=== PATIENT | female | born 1960 | race Caucasian/White ===

== ENCOUNTER → 2022-05-11 | Outpatient (CLI) | payer OTHER ==
[~2022-05-11] MED LIST: NEURONTIN100 MG PO; SYNTHROID25 MCG PO
[2022-05-11 09:10] LABS: BASO # 0.1 10*3/uL (0.0-0.1); BASO % 1.1 % (0.0-1.0); EOS # 0.2 10*3/uL (0.0-0.4); EOS % 2.4 % (1.0-4.0); HEMATOCRIT 45.4 % (37.0-47.0); LYMPH # 1.5 10*3/uL (1.3-4.4); LYMPH % 20.6 % (27.0-41.0); MEAN CELL VOLUME 88.3 fl (81.0-99.0); MEAN CORPUSCULAR HGB 29.2 pg (27.0-31.0); MEAN PLATELET VOLUME 8.8 fl (9.6-12.3); MONO # 0.6 10*3/uL (0.1-1.0); MONO % 8.2 % (3.0-9.0); NEUT # 4.8 10*3/uL (2.3-7.9); NEUT % 67.4 % (47.0-73.0); PLATELET COUNT AUTOMATED 304 10*3/uL (130-400); RED BLOOD COUNT 5.14 10*6/uL (4.10-5.10); RED CELL DISTRI WIDTH 13.7 % (0-14.5); WHITE BLOOD COUNT 7.1 10*3/uL (4.8-10.8)
[2022-05-11 09:38] LABS: ALKALINE PHOSPHATASE 82 U/L (45-117); BUN 9 mg/dl (7-24); CHLORIDE 108 mmol/L (98-107); CHOLESTEROL 199 mg/dL (<200); CREATININE 0.88 mg/dL (0.55-1.02); LDL CHOLESTEROL 121 mg/dL (9-159); POTASSIUM 3.9 mmol/L (3.5-5.1); SGOT/AST 14 IU/L (3-35); SGPT/ALT 15 U/L (12-78); SODIUM 141 mmol/L (136-145); T3 UPTAKE 33 % (31-39); TOTAL PROTEIN 7.5 gm/dL (6.4-8.2); TRIGLYCERIDES 130 mg/dl (<150)
[2022-05-11 10:35] LABS: VITAMIN D, 25-HYDROXY 19.4 ng/mL (30-100)
== END ==
LOC: LAB 08:55
PROVIDERS: ATTEND Internal Medicine
DX: Z13.6 Encounter for screening for cardiovascular disorders (principal); Z13.0 Encounter for screening for diseases of the blood and blood-forming organs and certain disorders involving the immune mechanism; Z13.89 Encounter for screening for other disorder; Z13.820 Encounter for screening for osteoporosis; E55.9 Vitamin D deficiency, unspecified

== ENCOUNTER 2022-11-19 23:27 | Emergency (ER) | payer OTHER ==
[~2022-11-19] VITALS: Ht 167.6 cm; Wt 81.6 kg
[2022-11-20 00:03] LABS: BASO # 0.1 10*3/uL (0.0-0.1); BASO % 0.8 % (0.0-1.0); EOS # 0.2 10*3/uL (0.0-0.4); EOS % 1.6 % (1.0-4.0); HEMATOCRIT 41.9 % (37.0-47.0); LYMPH # 1.8 10*3/uL (1.3-4.4); LYMPH % 16.6 % (27.0-41.0); MEAN CELL VOLUME 89.1 fl (81.0-99.0); MEAN CORPUSCULAR HGB 30.2 pg (27.0-31.0); MEAN CORPUSCULAR HGB CONC 33.9 g/dl (33.0-37.0); MEAN PLATELET VOLUME 9.1 fl (9.6-12.3); MONO # 0.8 10*3/uL (0.1-1.0); MONO % 7.7 % (3.0-9.0); NEUT # 7.7 10*3/uL (2.3-7.9); PLATELET COUNT AUTOMATED 303 10*3/uL (130-400); RED CELL DISTRI WIDTH 13.4 % (0-14.5); WHITE BLOOD COUNT 10.6 10*3/uL (4.8-10.8)
[2022-11-20 00:18] LABS: ACT PARTIAL THROMBO TIME 23.6 SECONDS (20.0-32.1); INTERNATIONAL NORM RATIO 0.9 (2.0-3.5)
[2022-11-20 00:19] LABS: ALKALINE PHOSPHATASE 67 U/L (46-116); BUN 10 mg/dl (9-23); CHLORIDE 107 mmol/L (98-107); POTASSIUM 3.7 mmol/L (3.4-5.1); SGPT/ALT 9 U/L (10-49)
== END 2022-11-20 03:11 | disposition left against medical advice (07) ==
LOC: ED 23:27
PROVIDERS: Emergency Medicine
DX: R07.89 Other chest pain (principal); I10 Essential (primary) hypertension; E03.9 Hypothyroidism, unspecified; I25.10 Atherosclerotic heart disease of native coronary artery without angina pectoris; F17.200 Nicotine dependence, unspecified, uncomplicated; Z88.8 Allergy status to other drugs, medicaments and biological substances; Z79.899 Other long term (current) drug therapy; Z90.710 Acquired absence of both cervix and uterus; Z87.891 Personal history of nicotine dependence

== ENCOUNTER 2022-12-07 10:58 | Inpatient (IN) | payer OTHER ==
[~2022-12-07] VITALS: Ht 167.6 cm; Wt 78.0 kg
[2022-12-07 11:09] VITALS: BP 117/48
[2022-12-07 12:51] LABS: BASO # 0.1 10*3/uL (0.0-0.1); EOS # 0.1 10*3/uL (0.0-0.4); EOS % 0.9 % (1.0-4.0); HEMATOCRIT 47.6 % (37.0-47.0); LYMPH # 1.5 10*3/uL (1.3-4.4); LYMPH % 17.3 % (27.0-41.0); MEAN CELL VOLUME 87.7 fl (81.0-99.0); MEAN CORPUSCULAR HGB 29.5 pg (27.0-31.0); MEAN CORPUSCULAR HGB CONC 33.6 g/dl (33.0-37.0); MEAN PLATELET VOLUME 9.4 fl (9.6-12.3); MONO # 0.6 10*3/uL (0.1-1.0); MONO % 6.6 % (3.0-9.0); NEUT # 6.5 10*3/uL (2.3-7.9); NEUT % 73.9 % (47.0-73.0); PLATELET COUNT AUTOMATED 313 10*3/uL (130-400); RED BLOOD COUNT 5.43 10*6/uL (4.10-5.10); RED CELL DISTRI WIDTH 13.1 % (0-14.5); WHITE BLOOD COUNT 8.8 10*3/uL (4.8-10.8)
[2022-12-07 13:07] LABS: ALKALINE PHOSPHATASE 79 U/L (46-116); BUN 7 mg/dl (9-23); CHLORIDE 105 mmol/L (98-107); LIPASE 45 U/L (12-53); POTASSIUM 3.9 mmol/L (3.4-5.1); SGPT/ALT 11 U/L (10-49); TOTAL PROTEIN 7.8 gm/dL (6.0-8.0)
[2022-12-07 13:09] LABS: INTERNATIONAL NORM RATIO 0.9 (2.0-3.5)
[2022-12-07] MEDS ORDERED: ZOLOFT50 MG PO (18:27)
[2022-12-07 19:40] LABS: CHOLESTEROL 206 mg/dL (<200); LDL CHOLESTEROL 134 mg/dL (9-159); TRIGLYCERIDES 121 mg/dl (<150)
[2022-12-07 20:46] VITALS: BP 122/60
[2022-12-07 23:47] VITALS: BP 86/49
[2022-12-08 00:13] VITALS: BP 92/49
[2022-12-08 02:44] VITALS: BP 97/48
[2022-12-08 04:52] VITALS: BP 97/45
[2022-12-08 08:03] VITALS: BP 100/60
== END 2022-12-08 10:15 | disposition left against medical advice (07) | DRG 206 ==
LOC: ED 10:58 → EDHOLD 15:51
PROVIDERS: Physician Assistant; ADMIT Internal Medicine; ATTEND Internal Medicine
DX: M94.0 Chondrocostal junction syndrome [Tietze] (principal); E78.2 Mixed hyperlipidemia; Z53.29 Procedure and treatment not carried out because of patient's decision for other reasons; Z71.6 Tobacco abuse counseling; Z88.8 Allergy status to other drugs, medicaments and biological substances; Z90.711 Acquired absence of uterus with remaining cervical stump; Z82.49 Family history of ischemic heart disease and other diseases of the circulatory system

== ENCOUNTER 2022-12-10 11:40 | Inpatient (IN) | payer OTHER ==
[~2022-12-10] VITALS: Ht 175.3 cm; Wt 78.6 kg
[~2022-12-10 11:40] MED LIST changes: +ZOLOFT50 MG PO
[2022-12-10 11:49] VITALS: BP 114/55
[2022-12-10 12:10] LABS: BASO # 0.1 10*3/uL (0.0-0.1); BASO % 0.8 % (0.0-1.0); EOS # 0.1 10*3/uL (0.0-0.4); EOS % 0.8 % (1.0-4.0); HEMATOCRIT 43.1 % (37.0-47.0); LYMPH # 1.7 10*3/uL (1.3-4.4); LYMPH % 24.1 % (27.0-41.0); MEAN CELL VOLUME 87.8 fl (81.0-99.0); MEAN CORPUSCULAR HGB 29.3 pg (27.0-31.0); MEAN CORPUSCULAR HGB CONC 33.4 g/dl (33.0-37.0); MEAN PLATELET VOLUME 9.6 fl (9.6-12.3); MONO # 0.5 10*3/uL (0.1-1.0); MONO % 6.7 % (3.0-9.0); NEUT # 4.8 10*3/uL (2.3-7.9); NEUT % 67.3 % (47.0-73.0); PLATELET COUNT AUTOMATED 301 10*3/uL (130-400); RED BLOOD COUNT 4.91 10*6/uL (4.10-5.10); RED CELL DISTRI WIDTH 12.8 % (0-14.5); WHITE BLOOD COUNT 7.2 10*3/uL (4.8-10.8)
[2022-12-10 12:38] LABS: ALKALINE PHOSPHATASE 67 U/L (46-116); BUN 6 mg/dl (9-23); CHLORIDE 108 mmol/L (98-107); LIPASE 39 U/L (12-53); POTASSIUM 3.9 mmol/L (3.4-5.1); SGPT/ALT 10 U/L (10-49); TOTAL PROTEIN 7.2 gm/dL (6.0-8.0)
[2022-12-10 13:36] LABS: ACT PARTIAL THROMBO TIME 24.7 SECONDS (20.0-32.1)
[2022-12-10 16:57] VITALS: BP 115/57
[2022-12-10 17:10] LABS: THYROID STIM HORMONE (HS) 2.069 uIU/ml (0.550-4.780)
[2022-12-10 20:40] VITALS: BP 103/59
[2022-12-11] VITALS: BP 92/52
[2022-12-11 04:55] LABS: BUN 14 mg/dl (9-23); CHLORIDE 109 mmol/L (98-107); POTASSIUM 3.7 mmol/L (3.4-5.1)
[2022-12-11 08:00] VITALS: BP 108/54
[2022-12-11 12:00] VITALS: BP 107/71
[2022-12-11 15:21] VITALS: BP 112/67
[2022-12-11 20:00] VITALS: BP 111/62
[2022-12-12] VITALS: BP 130/86; BP 99/56
[2022-12-12 08:00] VITALS: BP 100/55
[2022-12-12] MEDS ORDERED: BUSPIRONE10 MG PO (10:36)
[2022-12-12 12:00] VITALS: BP 109/68
== END 2022-12-12 14:36 | disposition home or self-care (01) | DRG 313 ==
LOC: ED 11:40 → EDHOLD 14:42 → 5E 14:42
PROVIDERS: Emergency Medicine; Internal Medicine; ADMIT Internal Medicine; ATTEND Internal Medicine
PROC: 4A02XM4 Measurement of Cardiac Total Activity, External Approach (ICD-10-PCS; principal; 2022-12-12)
PROC: 3E073KZ Introduction of Other Diagnostic Substance into Coronary Artery, Percutaneous Approach (ICD-10-PCS; 2022-12-12)
DX: R07.9 Chest pain, unspecified (principal); E03.9 Hypothyroidism, unspecified; I25.10 Atherosclerotic heart disease of native coronary artery without angina pectoris; I10 Essential (primary) hypertension; F41.1 Generalized anxiety disorder; G89.29 Other chronic pain; M54.50 Low back pain, unspecified; E78.2 Mixed hyperlipidemia; Z88.8 Allergy status to other drugs, medicaments and biological substances; Z90.711 Acquired absence of uterus with remaining cervical stump; Z90.710 Acquired absence of both cervix and uterus; Z82.49 Family history of ischemic heart disease and other diseases of the circulatory system; Z71.6 Tobacco abuse counseling; Z98.890 Other specified postprocedural states

== ENCOUNTER 2022-12-14 21:59 | Emergency (ER) | payer OTHER ==
[~2022-12-14] VITALS: Ht 167.6 cm; Wt 81.8 kg
[~2022-12-14 21:59] MED LIST changes: +BUSPIRONE10 MG PO
[2022-12-14 22:33] LABS: BASO # 0.1 10*3/uL (0.0-0.1); BASO % 0.8 % (0.0-1.0); EOS # 0.2 10*3/uL (0.0-0.4); EOS % 1.7 % (1.0-4.0); HEMATOCRIT 41.2 % (37.0-47.0); LYMPH # 1.9 10*3/uL (1.3-4.4); LYMPH % 19.2 % (27.0-41.0); MEAN CELL VOLUME 89.8 fl (81.0-99.0); MEAN CORPUSCULAR HGB 30.1 pg (27.0-31.0); MEAN CORPUSCULAR HGB CONC 33.5 g/dl (33.0-37.0); MEAN PLATELET VOLUME 9.6 fl (9.6-12.3); MONO # 0.8 10*3/uL (0.1-1.0); MONO % 7.8 % (3.0-9.0); NEUT % 70.1 % (47.0-73.0); PLATELET COUNT AUTOMATED 260 10*3/uL (130-400); RED BLOOD COUNT 4.59 10*6/uL (4.10-5.10); RED CELL DISTRI WIDTH 12.7 % (0-14.5); WHITE BLOOD COUNT 9.9 10*3/uL (4.8-10.8)
[2022-12-14 22:53] LABS: ALKALINE PHOSPHATASE 81 U/L (46-116); BUN 14 mg/dl (9-23); CHLORIDE 109 mmol/L (98-107); POTASSIUM 3.9 mmol/L (3.4-5.1); SGPT/ALT 9 U/L (10-49); TOTAL PROTEIN 6.8 gm/dL (6.0-8.0)
== END 2022-12-14 23:07 | disposition home or self-care (01) ==
LOC: ED 21:59
PROVIDERS: Physician Assistant
DX: M79.605 Pain in left leg (principal); Z88.8 Allergy status to other drugs, medicaments and biological substances; Z79.899 Other long term (current) drug therapy; Z90.711 Acquired absence of uterus with remaining cervical stump; Z87.891 Personal history of nicotine dependence

== ENCOUNTER → 2022-12-15 | Outpatient (CLI) | payer OTHER | END | disposition home or self-care (01) | LOC: US 10:04 | PROVIDERS: ATTEND Physician Assistant | DX: R60.0 Localized edema (principal); R25.2 Cramp and spasm ==

== ENCOUNTER 2024-03-10 14:30 | Emergency (ER) | payer BC ==
[~2024-03-10] VITALS: Ht 167.6 cm; Wt 79.4 kg
[2024-03-10] MEDS ORDERED: ATORVASTATIN CA40 M1 PO (14:55)
[2024-03-10 15:38] LABS: BASO # 0.1 10*3/uL (0.0-0.1); EOS # 0.1 10*3/uL (0.0-0.4); EOS % 1.3 % (1.0-4.0); HEMATOCRIT 46.4 % (37.0-47.0); LYMPH # 1.9 10*3/uL (1.3-4.4); LYMPH % 20.2 % (27.0-41.0); MEAN CELL VOLUME 89.2 fl (81.0-99.0); MEAN CORPUSCULAR HGB 29.8 pg (27.0-31.0); MEAN CORPUSCULAR HGB CONC 33.4 g/dl (33.0-37.0); MONO # 0.7 10*3/uL (0.1-1.0); MONO % 7.5 % (3.0-9.0); NEUT # 6.6 10*3/uL (2.3-7.9); NEUT % 69.7 % (47.0-73.0); PLATELET COUNT AUTOMATED 327 10*3/uL (130-400); RED CELL DISTRI WIDTH 14.6 % (0-14.5); WHITE BLOOD COUNT 9.4 10*3/uL (4.8-10.8)
[2024-03-10 15:57] LABS: ACT PARTIAL THROMBO TIME 25.8 SECONDS (20.0-32.1)
[2024-03-10 15:58] LABS: BUN 9 mg/dl (9-23); CHLORIDE 104 mmol/L (98-107); POTASSIUM 3.4 mmol/L (3.4-5.1)
[2024-03-10] MEDS ORDERED: Acetaminophen/Oxycodone 5 MG/325 MG TABLET PO ONE (17:50)
== END 2024-03-10 18:17 | disposition home or self-care (01) ==
LOC: ED 14:30
PROVIDERS: Nurse Practitioner
DX: M79.662 Pain in left lower leg (principal); M25.562 Pain in left knee; M25.552 Pain in left hip; M25.522 Pain in left elbow; M25.512 Pain in left shoulder; R51.9 Headache, unspecified; M79.641 Pain in right hand; R25.1 Tremor, unspecified; F17.200 Nicotine dependence, unspecified, uncomplicated; Z88.8 Allergy status to other drugs, medicaments and biological substances; Z79.899 Other long term (current) drug therapy; Z90.711 Acquired absence of uterus with remaining cervical stump; W01.0XXA Fall on same level from slipping, tripping and stumbling without subsequent striking against object, initial encounter; Y93.89 Activity, other specified; Y92.89 Other specified places as the place of occurrence of the external cause; Y99.8 Other external cause status

== ENCOUNTER → 2025-01-29 | Outpatient (CLI) | payer BC ==
[~2025-01-29] MED LIST changes: +ATORVASTATIN CA40 M1 PO
== END | disposition home or self-care (01) ==
LOC: RAD 08:31
PROVIDERS: ATTEND Internal Medicine
DX: Z13.820 Encounter for screening for osteoporosis (principal); Z78.0 Asymptomatic menopausal state

== ENCOUNTER 2025-03-29 08:32 | Emergency (ER) | payer BC ==
[~2025-03-29] VITALS: Ht 167.6 cm; Wt 87.1 kg
[2025-03-29] MEDS ORDERED: CALCIUM + D SO1 EACH PO (08:48)
[2025-03-29] MEDS ORDERED: VITAMIN D310 MC1 PO (08:48)
[2025-03-29] MEDS ORDERED: diazePAM 5 MG TAB PO ONE (09:10)
[2025-03-29] MEDS ORDERED: Ketorolac Tromethamine 15 MG/ML VIAL IV ONE (09:10)
[2025-03-29] MEDS ORDERED: Ondansetron Hydrochloride 4 MG/2 ML VIAL IV ONE (09:10)
[2025-03-29] MEDS ORDERED: Dexamethasone Sodium Phospha 20 MG/5 ML VIAL IV ONE (09:10)
[2025-03-29] MEDS ORDERED: HYDROmorphone Hydrochloride 1 MG/ML SYR IV ONE (09:10)
[2025-03-29 09:58] LABS: BILIRUBIN Negative (Negative); BLOOD Negative (Negative); CLARITY Clear (Clear); COLOR Yellow (Yellow); GLUCOSE Negative (Negative); KETONE Negative (Negative); LEUKO ESTERASE Negative (Negative); NITRITE Negative (Negative); PH 5.5 (4.5-8.0); SPECIFIC GRAVITY <= 1.005 (1.001-1.030); UROBILINOGEN 0.2 E.U./dl (0.0-1.0)
[2025-03-29 10:20] LABS: BACTERIA 2+; WBC 0-2 wbc/hpf (0-5)
[2025-03-29] MEDS ORDERED: PERCOCET 5-3251 EACH PO (11:46)
[2025-03-29] MEDS ORDERED: Ondansetron4 MG PO (11:46)
[2025-03-29] MEDS ORDERED: METHOCARBAMOL750 M1 PO (11:46)
[2025-03-29] MEDS ORDERED: PREDNISONE20 M1 PO (11:46)
== END 2025-03-29 12:19 | disposition home or self-care (01) ==
LOC: ED 08:32
PROVIDERS: Emergency Medicine
DX: M51.369 Other intervertebral disc degeneration, lumbar region without mention of lumbar back pain or lower extremity pain (principal); M54.16 Radiculopathy, lumbar region; Z88.8 Allergy status to other drugs, medicaments and biological substances; Z79.899 Other long term (current) drug therapy; Z98.890 Other specified postprocedural states; Z90.711 Acquired absence of uterus with remaining cervical stump; Z87.891 Personal history of nicotine dependence